=== PATIENT | female | born 1965 | race Caucasian/White ===

== ENCOUNTER 2019-11-13 07:41 | Outpatient (CLI) | payer OTHER, SELFPAY ==
--- NOTE | ~2019-11-13 | CT_ITS ---
EXAMINATION:CT chest wo con DATE: 11/13/2019 08:14 INDICATION: Right lung upper lobe cancer. TECHNIQUE: Computed tomography (CT) of the chest was performed without intravenous contrast. Automate d exposure control and iterative reconstruction technique were employed. The dose-length product (DLP ) was 125.10 mGy-cm. COMPARISON: Chest CT 11/11/2018, 12/11/2016, PET/CT 03/04/2016 FINDINGS: There is moderate emphysema. There is mild scarring at the lung apices. There are right per ihilar airspace opacities with volume loss and varicose bronchiectasis, consistent with relation fibr osis. Calcified right lung nodules and calcified right hilar and mediastinal lymph nodes are consiste nt with old granulomatous disease. No pleural effusion. The heart size is normal. There are coronary artery calcifications. No pericardial effusion. Calcifications in the liver and spleen are consistent with old granulomatous disease. There is mild thoracic spondylosis. IMPRESSION: 1. Stable right perihilar radiation fibrosis. No evidence of malignancy. 2. Moderate emphysema. Reviewed, dictated and finalized at location A.
== END 2019-11-13 07:42 | disposition home or self-care (01) ==
LOC: ANHIMG 07:47
PROVIDERS: PCP Internal Medicine Infectious Disease; Visit Provider Radiology Radiation Oncology
DX: Z85.118 Personal history of other malignant neoplasm of bronchus and lung (principal); J43.9 Emphysema, unspecified
CPT/HCPCS: 71250

== ENCOUNTER 2020-11-15 09:24 | Outpatient (CLI) | payer OTHER, SELFPAY ==
--- NOTE | ~2020-11-15 | CT_ITS ---
EXAMINATION: CT diagnostic chest wo con EXAM DATE: 11/15/2020 09:49 INDICATION: Lung cancer follow-up. TECHNIQUE: Spiral CT of the chest without contrast. Axial, coronal and sagittal images of the chest were reviewed. Coronal maximum intensity pixel images of chest reviewed. The dose-length product ( DLP) for this examination was 120.44 mGy-cm. The exposure was tailored according to patient size (au to mA exposure control), and iterative reconstruction (ASIR) was used as additional dose reduction te chnique. Comparison is made to prior examination from 11/13/2019. FINDINGS: Large amount of right paramedian opacity with volume loss, likely patient's treated lung c ancer and radiation fibrosis. Appearance is stable. There is moderate emphysema and severe hyperinfla tion with narrow cardiac silhouette. Mild bronchiectasis. Small to moderate pericardial effusion, sl ightly larger than previous examination. Tracheobronchial tree is patent. There is no mediastinal, hilar or axillary lymphadenopathy. There is no pneumothorax. There is mild coronary arterial matt cification, arterial sclerosis. Splenic and liver granulomas. There is mild thoracic spondylosis wi thout osteoblastic or osteolytic lesions identified. IMPRESSION: 1. Stable right paramedian treated lung cancer and radiation fibrosis. 2. Severe hyperinflation. Moderate emphysema. Reviewed, dictated and finalized at location A.
== END 2020-11-15 09:25 | disposition home or self-care (01) ==
LOC: ANHIMG 09:26
PROVIDERS: PCP Internal Medicine Infectious Disease; Visit Provider Physician Assistant Medical
DX: Z85.118 Personal history of other malignant neoplasm of bronchus and lung (principal); R91.8 Other nonspecific abnormal finding of lung field; J70.1 Chronic and other pulmonary manifestations due to radiation
CPT/HCPCS: 71250

== ENCOUNTER 2021-11-17 08:30 | Outpatient (CLI) | payer OTHER, SELFPAY ==
--- NOTE | ~2021-11-17 | CT_ITS ---
EXAMINATION:CT diagnostic chest wo con DATE: 11/17/2021 09:18 INDICATION: Squamous cell carcinoma of right lung. TECHNIQUE: Computed tomography (CT) of the chest was performed without intravenous contrast. Automate d exposure control and iterative reconstruction technique were employed. The dose-length product (DLP ) was 128.87 mGy-cm. COMPARISON: Chest CT 11/15/2020 FINDINGS: There is moderate emphysema. There are airspace opacities with volume loss and varicose bro nchiectasis involving perihilar right upper lobe and superior segment right right lower lobe, consist ent with radiation fibrosis. There is mild atelectasis and scarring in right middle lobe and basilar right lower lobe. There is minimal atelectasis and scarring in left lung. Calcified right lung nodule s and calcified right hilar and mediastinal lymph nodes are consistent with old granulomatous disease . No pleural effusion. The heart size is normal. No pericardial effusion. Calcifications in the liver and spleen are consistent with old granulomatous disease. There is mild thoracic spondylosis. IMPRESSION: 1. Stable radiation fibrosis in right lung. 2. Moderate emphysema. Reviewed, dictated and finalized at location A.
== END 2021-11-17 08:31 | disposition home or self-care (01) ==
PROVIDERS: PCP Internal Medicine Infectious Disease; Visit Provider Physician Assistant Medical
DX: C34.91 Malignant neoplasm of unspecified part of right bronchus or lung (principal); J43.9 Emphysema, unspecified; R91.8 Other nonspecific abnormal finding of lung field
CPT/HCPCS: 71250

== ENCOUNTER 2022-11-20 09:48 | Outpatient (CLI) | payer OTHER, SELFPAY ==
--- NOTE | ~2022-11-20 | CT_ITS ---
CT Scan of the Chest without Contrast: Clinical Indication: Squamous cell carcinoma right lung Technique: Contiguous sections were acquired throughout the chest without intravenous contrast. Dose reduction technique was used on this scan by utilizing automated exposure control and iterative recon struction technique. The dose-length product (DLP) was 126.87 mGy-cm. COMPARISON: 11/17/2021 Findings: There is no evidence of any significant mediastinal, hilar or axillary lymphadenopathy. Calcified sub carinal and right hilar lymph nodes are present. There is no evidence of pleural or pericardial effusion. There is stable chronic right-sided volume loss, with severe emphysema and bronchiectatic change invo lving the right upper lobe. Right perihilar chronic consolidative changes are also compatible with po st radiation pneumonitis. There is mild to moderate emphysema in the left lung, which is relatively h yperinflated. Images through the upper abdomen reveal calcified splenic and hepatic granulomas. Impression: No evidence for active malignancy or metastatic disease. No change from prior exam. Stable post radiation change in the right lung with associated right-sided volume loss, right perihil ar consolidation, and severe emphysema in the right upper lobe. Mild to moderate emphysema in the remainder of the lungs. Reviewed, dictated and finalized at location . Impression: No evidence for active malignancy or metastatic disease. No change from prior e xam. Stable post radiation change in the right lung with associated right-sided volu me loss, right perihilar consolidation, and severe emphysema in the right upper lobe. Mild to moderate emphysema in the remainder of the lungs.
== END 2022-11-20 09:49 | disposition home or self-care (01) ==
PROVIDERS: PCP Internal Medicine Infectious Disease; Visit Provider Physician Assistant Medical
DX: C34.91 Malignant neoplasm of unspecified part of right bronchus or lung (principal); J43.9 Emphysema, unspecified; R91.8 Other nonspecific abnormal finding of lung field; Z92.3 Personal history of irradiation
CPT/HCPCS: 71250

== ENCOUNTER 2023-12-16 10:39 | Outpatient (CLI) | payer OTHER, SELFPAY ==
--- NOTE | ~2023-12-16 | CT_ITS ---
EXAMINATION:CT diagnostic chest wo con DATE: 12/16/2023 11:00 INDICATION: Squamous cell carcinoma of right lung. TECHNIQUE: Computed tomography (CT) of the chest was performed without intravenous contrast. Automate d exposure control and iterative reconstruction technique were employed. The dose-length product (DLP ) was 127.54 mGy-cm. COMPARISON: Chest CT 11/20/2022 FINDINGS: There is moderate emphysema. There are airspace opacities involving right upper lobe, right middle lobe, and superior segment right lower lobe with volume loss, architectural distortion, and v aricose bronchiectasis, consistent with radiation pneumonitis. There is mild bronchiectasis in lingul a. There is mild atelectasis bilaterally. A calcified right lung nodule and calcified right hilar and mediastinal lymph nodes are consistent with old granulomatous disease. No pleural effusion. The hear t size is normal. No pericardial effusion. Calcifications in the liver and spleen are consistent with old granulomatous disease. There is mild thoracic spondylosis. IMPRESSION: 1. Chronic radiation pneumonitis in right lung with worsened collapse of right middle lobe. 2. Moderate emphysema. 3. No evidence of metastatic disease. Reviewed, dictated and finalized at location A.
== END 2023-12-16 10:40 | disposition home or self-care (01) ==
PROVIDERS: PCP Internal Medicine Infectious Disease; Visit Provider Physician Assistant Medical
DX: C34.91 Malignant neoplasm of unspecified part of right bronchus or lung (principal); J43.9 Emphysema, unspecified
CPT/HCPCS: 71250

== ENCOUNTER 2025-02-28 14:45 | Outpatient (CLI) | payer OTHER, SELFPAY ==
--- NOTE | ~2025-02-28 | CT_ITS ---
Exam: CT chest without contrast Clinical History: [Squamous cell carcinoma. ] Comparison: [ CT chest studies from 12/16/2023, 11/20/2022, 11/17/2021, 11/15/2020 and 11/13/2019] Technique: Multiple axial CT images of the chest without with IV contrast. Sagittal and coronal reformatted images were obtained. FINDINGS: Lungs and pleura: [ Grossly stable postsurgical change in the right hemithorax with volume loss. Grossly stable emphysema. There is 9 mm subpleural nodular density in the medial aspect of the superior segment of the left lower lobe. The finding is similar to the prior study from 12/16/2023. New 2.5 x 2.4 cm spiculated nodule in the left lower lobe with a small eccentric lucency. There is a new 2.4 x 4.2 cm consolidation in the lingula which abuts the major fissure. There is a moderate-sized adjacent groundglass opacity. New 1.8 x 1.0 cm pulmonary nodule in the left lower lobe. New moderate-sized area of groundglass opacities in the anterior left lower lobe. New 1.4 cm subpleural nodule in the anterior aspect of the left lower lobe. New small patchy opacities in the right lower lung. New 5 mm pulmonary nodular density in the right lower lung. New 1.5 cm subpleural density in the medial aspect of the right lower lung. Mediastinum and pulmonary miki: [ No mass or adenopathy.] Axillary/intramammary and supraclavicular: [ No mass or adenopathy.] Heart and great vessels: [ Normal heart size.[ [ No pericardial effusion.] [ No aneurysm.] Moderate atherosclerotic disease in the thoracic aorta. Chest Wall: [ Unremarkable.] Upper Abdomen: [ No significant findings.] Osseous structures: [ No acute fracture or destructive lesion.] [ Multilevel degenerative change in the visualized spine.] Additional findings: [ None of significance.] IMPRESSION: 1. New 2.5 x 2.4 cm spiculated nodule in the left lower lobe with an small eccentric lucency. A PET/CT and/or biopsy is recommended. 2. There is a new 2.4 x 4.2 cm consolidation in the lingula which abuts the major fissure. A PET/CT is recommended. 3. There is a moderate-sized groundglass opacity in the lingula. Differential includes but is not limited to an inflammatory or infectious process. 4. New 1.8 x 1.0 cm pulmonary nodule in the left lower lobe. A PET/CT and/or biopsy is recommended. 5. New moderate-sized area of groundglass opacities in the anterior left lower lobe. Differential includes but is not limited to an inflammatory or infectious process. 6. New 1.4 cm subpleural nodule in the anterior aspect of the left lower lobe. A PET/CT and/or biopsy is recommended. 7. New small patchy opacities in the right lower lung. Differential includes but is not limited to an inflammatory or infectious process. 8. New 5 mm pulmonary nodular density in the right lower lung. Attention on follow-up imaging. 9. New 1.5 cm subpleural density in the medial aspect of the right lower lung.A PET/CT and/or biopsy is recommended. 10. Emphysema. Reviewed, dictated and finalized at location Q. IMPRESSION: 1. New 2.5 x 2.4 cm spiculated nodule in the left lower lobe with an small ecce ntric lucency. A PET/CT and/or biopsy is recommended. 2. There is a new 2.4 x 4.2 cm consolidation in the lingula which abuts the erica or fissure. A PET/CT is recommended. 3. There is a moderate-sized groundglass opacity in the lingula. Differential i ncludes but is not limited to an inflammatory or infectious process. 4. New 1.8 x 1.0 cm pulmonary nodule in the left lower lobe. A PET/CT and/or bi opsy is recommended. 5. New moderate-sized area of groundglass opacities in the anterior left lower lobe. Differential includes but is not limited to an inflammatory or infectious process. 6. New 1.4 cm subpleural nodule in the anterior aspect of the left lower lobe. A PET/CT and/or biopsy is recommended. 7. New small patchy opacities in the right lower lung. Differential includes bu t is not limited to an inflammatory or infectious process. 8. New 5 mm pulmonary nodular density in the right lower lung. Attention on fol low-up imaging. 9. New 1.5 cm subpleural density in the medial aspect of the right lower lung.A PET/CT and/or biopsy is recommended. 10. Emphysema.
--- OUTSIDE RECORDS SUMMARY | 2025-02-28 16:45 | XMS_ITS | Clinical Summary ---
Author Organization [facility] Address [address] [place] [address] Care Team Providers Care Venetian Blind Maker Name Role Phone Rashaun Chavez MD Primary Care Provider Source Comments [facility],non-owned Affiliates and Associated Physician Practices is amultiple site organization consisting of ambulatory clinics and hospital sitesin [place], [place], [place] and [place]. This disclosure is being madepursuant to the Care Everywhere program and may not contain all information available regarding this patient. Last updated 18.[facility] Medications * Be aware that medications may not be up to date on this document. Alwaysverify current medications with the patient. tiotropium (SPIRIVA HANDIHALER) 18 MCG inhalation capsule Inhale by mouth DAILY. 03/31/2016 Active ibuprofen (MOTRIN) 600 MG tablet Take 600 mg by mouth q6h PRN (Pain). 03/31/2016 Active nicotine (NICOTINE STEP 1) 21 MG/24HR patch 0 02/21/2016 Active Active Problems Problem Noted Date Diagnosed Date Malignant neoplasm of right main bronchus 2015 Resolved Problems Problem Noted Date Diagnosed Date Resolved Date Pneumonia 03/31/2016 08/30/2017 Family History Medical History Relation Name Comments Cancer - Colon Brother Status: Alive Heart Disease Father Status: Deceas ed Leukemia Father Hypertension Mother Status: Alive None Known Sister Status: Alive Relation Name Status Comments Brother Father Mother Sister Social History Tobacco Use Types Packs/Day Years Used Date Smoking Tobacco: Former Cigarettes Q uit: 02/25/2016 Smokeless Tobacco: Never Alcohol Use Standard Drinks/Week Comments Yes 3 (1 standard drink = 0.6 oz pur e alcohol) Comments Unknown Sex and Gender Information Value Date Recorded Sex Assigned at Not on file Legal Sex Female 5:47 PM TERRAZZO FINISHER Gender Identity Not on file Sexual Orientation Not on file Last Filed Vital Signs Vital Sign Reading Time Taken Comments Blood Pressure 130/91 04/21/2016 2:52 PM TERRAZZO FINISHER Pulse 97 04/21/2016 2:52 PM TERRAZZO FINISHER Temperature 36.6 C (97.9 F) 04/21/2016 2:52 PM TERRAZZO FINISHER Respiratory Rate 21 04/02/2016 10:00 AM TERRAZZO FINISHER Oxygen Saturation 93% 04/21/2016 2:52 PM TERRAZZO FINISHER Inhaled Oxygen Concentration - - Weight 46.3 kg (102 lb) 04/21/2016 2:52 PM TERRAZZO FINISHER Height 152.4 cm (5') 04/21/2016 2:52 PM TERRAZZO FINISHER Body Mass Index 19.92 04/21/2016 2:52 PM TERRAZZO FINISHER Plan of Treatment Health Maintenance Due Date Last Done Comments COLOGUARD (AGES 45-75) - COL ON CA SCREENING 1964 COLON MONITORING 1964 COLONOSCOPY - COLON CA SCREENING 1964 CT COLONOGRAPHY - COLON CA SCREENING 1964 Colorectal Cancer Screening 1964 FIT - COLON CA SCREENING 1964 FLEX SIG - COLON CA SCREENING 1964 LIPID TESTING 1965 MAMMOGRAM 1964 HIV SCREENING 01/14/1979 HEPATITIS C SCREENING 01/10/1982 DTAP/TDAP/TD VACCINES (1 - Tdap) 01/14/1983 PNEUMOCOCCAL VACCINE 50+ (1 of 1 - PCV) 01/14/2014 ZOSTER VACCINE (1 of 2) 01/14/2014 DEPRESSION SCREENING 05/03/2024 COVID-19 VACCINE (1 - 2023-2 5 season) 2025 INFLUENZA VACCINE (#1) 2025 05/03/2017 Respiratory Syncytial Virus (RSV) Vaccine Pt: or over 60 yrs (1 - 1-dose 75+ series) 01/14/2039 HEPATITIS B VACCINE Aged Out No longe r eligible based on patient's age to complete this topic HIB VACCINE Aged Out No longer eligi ble based on patient's age to complete this topic HPV VACCINE Aged Out No longer eligi ble based on patient's age to complete this topic MENINGOCOCCAL (Group B) VACC INE SHARED DECISION-MAKING Aged Out No longer eligibl e based on patient's age to complete this topic MENINGOCOCCAL GROUPS A/C/Y/W VACCINE Aged Out No longer eligible b ased on patient's age to complete this topic Care Teams Venetian Blind Maker Relationship Specialty [place] [address] [place] [phone] PCP - General 03/18/16
--- OUTSIDE RECORDS SUMMARY | 2025-02-28 16:45 | XMS_ITS | Clinical Summary ---
Author Organization [facility] Address [address] [place] [address] Phone Care Team Providers Care Nutrition Specialist Name Role Phone Rashaun Chavez MD Primary Care Provider Rey Olivia MD Unavailable [phone] Hung Parnell MD Unavailable [phone] Rashaun Chavez MD Unavailable [phone] Allergies No known active allergies Medications LORazepam (ATIVAN) 1 mg tabletIndicatio ns:Non-small cell carcinoma of lung (HCC) Take 1 tablet (1 mg total) by mouth nightly as needed for anxiety or sleep. 30 tablet 8 Active acetaminophen (TYLENOL) 325 mg tabletIndicatio ns:Non-small cell carcinoma of lung (HCC) Take 2 tablets (650 mg total) by mouth every 6 (six) hours as needed for pain. 30 tablet 8 Active ibuprofen (ADVIL,MOTRIN) suspension 100 mg/5 mL ibuprofen Active tiotropium (SPIRIVA WITH HANDIHALER) 18 mcg per inhalation capsule Place into inhaler and inhale. 6 Active albuterol HFA (PROVENTIL HFA,VENTOLIN HFA,PROAIR HFA) 90 mcg/actuation inhalerIndicati ons:Squamous cell carcinoma of right lung (HCC),Shortness of breath Inhale 2 puffs every 6 (six) hours as needed for wheezing 1 each 3 3 Active guaiFENesin (ROBITUSSIN) syrup 100 mg/5 mLIndications:C ough Take 5 mL (100 mg total) by mouth 3 (three) times a day as needed for cough 120 mL 1 5 Active sertraline (ZOLOFT) 50 mg tabletIndicatio ns:Anxiety with Depression Take 1 tablet (50 mg total) by mouth daily 90 tablet 3 5 08/05/19 26 Active Active Problems Problem Noted Date Diagnosed Date Personal history of radiation therapy 12/11/2020 Squamous cell carcinoma of right lung 07/12/2017 Encounters Date Type Department Care Team Description 02/20/2025 [facility] Medical Office Building 2 Radiation Oncology [address] [place] [id number] Sarah Hunter 02/20/2025 Orders Only [facility] Medical Office Building 2 Radiation Oncology [address] [place] [phone] Patricia Argueta, PA Squamous cell carcinoma of right lung (HCC) (Primary Dx) 01/16/2025 [facility] Medical Office Building 2 Radiation Oncology [address] [place] [phone] Celine Bennett RN 01/04/2025 [facility] Medical Office Building 2 Radiation Oncology [address] [place] [id number] Celine Bennett, RN from Last 3 Months Immunizations Immunization Administration Dates Next Due Influenza, Unspecified 05/03/2017 Social History Tobacco Use Types Packs/Day Years Used Date Smoking Tobacco: Former Smokeless Tobacco: Never Alcohol Use Standard Drinks/Week Comments No 0 (1 standard drink = 0.6 oz pur e alcohol) Comments No Sex and Gender Information Value Date Recorded Sex Assigned at Not on file Legal Sex Female 8:30 PM SPACE STUDIES FACULTY MEMBER Gender Identity Not on file Sexual Orientation Not on file Obstetrics History Last Filed Vital Signs Vital Sign Reading Time Taken Comments Blood Pressure 137/76 05/11/2024 3:19 PM SPACE STUDIES FACULTY MEMBER Pulse 108 05/11/2024 3:19 PM SPACE STUDIES FACULTY MEMBER Temperature 36.7 C (98.1 F) 05/05/2018 11:44 AM SPACE STUDIES FACULTY MEMBER Respiratory Rate 22 05/05/2018 11:44 AM SPACE STUDIES FACULTY MEMBER Oxygen Saturation 100% 05/11/2024 3:19 PM SPACE STUDIES FACULTY MEMBER Inhaled Oxygen Concentration - - Weight 42.6 kg (94 lb) 05/11/2024 3:19 PM SPACE STUDIES FACULTY MEMBER Height 152.4 cm (5') 05/05/2018 11:44 AM SPACE STUDIES FACULTY MEMBER Body Mass Index 18.36 05/05/2018 11:44 AM SPACE STUDIES FACULTY MEMBER Plan of Treatment Health Maintenance Due Date Last Done Comments Cervical Cancer Screening 1964 Colon Cancer Screening-Colonoscopy 1964 Depression Screening 1964 Hepatitis C Screening 1964 Hepatitis B Screening 01/14/1982 Regular Well Visit/Exam 18-64 01/14/1982 Zoster Vaccine (2 of 3) 05/27/2017 04/01/20 17, 11/19/2016, 08/13/2016, Additional history exists Breast Cancer Screening-Mammogram 11/30/2018 018 Influenza Vaccine (#1) 2025 , 02/22/2023, 02/05/2022, Additional history exists DTaP/Tdap/Td Vaccine (3 - Td or Tdap) 02/14/2034 02/15/2024, 08/15/2018 Pneumococcal vaccine <65 Completed 02/05/2022, 08/01 Covid-19 Vaccine Completed 02/15/2024, , 02/05/2022, Additional history exists Insurance [facility] [place] [address] [place] [address] Care Teams Nutrition Specialist Relationship Specialty Start Date End Date Rashaun Chavez MD [address] [place] [id number] PCP - General 05/22/19 Rey Olivia MD [address] [place] [id number] Medical Oncologist/Mathematics Faculty Member Hematology and Oncology 04/20/18 Hung Parnell MD [address] [place] [id number] Radiation Oncologist Radiation Oncology 12/13/23 Rashaun Chavez MD [address] [place] [id number] Referring Physician Internal Medicine 01/04/25
--- OUTSIDE RECORDS SUMMARY | 2025-02-28 16:45 | XMS_ITS | Clinical Summary ---
Author Organization [facility] Address [facility] [place] [address] Care Team Providers Care Grain Operator Name Role Phone Unavailable Primary Care Provider Unavailabl e Social History Tobacco Use Types Packs/Day Years Used Date Smoking Tobacco: Never Assessed Comments Unknown Sex and Gender Information Value Date Recorded Sex Assigned at Not on file Legal Sex Female 7:14 PM CDT Gender Identity Not on file Sexual Orientation Not on file Plan of Treatment Health Maintenance Due Date Last Done Comments Cervical Cancer Screening Pa p Smear (Age 30 to 64) Every 3 Years 1964 Colorectal Cancer Screening Colonoscopy (10 Years) 1964 Annual Physical 01/14/1967 Hepatitis C 01/14/1982 DTaP, Tdap and Td Vaccines ( 1 - Tdap) 01/14/1983 Cervical Cancer Screening Pa p with HPV Testing (Age 30 to 64) Every 5 Years 01/14/1994 Cervical Cancer Screening with HPV 01/14/1994 Mammogram Screening 2004 Pneumococcal Vaccine: 50+ Ye ars (1 of 1 - PCV) 01/14/2014 Zoster Vaccines (1 of 2) 01/14/2014 COVID-19 Vaccine (2024-2 6 season) 2025 Influenza Adult (#1) 2025 RSV Immunization or 60+ Years (1 - 1-dose 75+ series) 01/14/2039 Hepatitis A Vaccines Aged Out No long er eligible based on patient's age to complete this topic Meningococcal B Vaccine Aged Out No l onger eligible based on patient's age to complete this topic Meningococcal Vaccine Aged Out No kiana jerri eligible based on patient's age to complete this topic RSV Immunizations Under 20 Months Aged Out No longer eligible based on patient's age to complete this topic
== END 2025-02-28 14:46 | disposition home or self-care (01) ==
LOC: ANHIMG 14:48
PROVIDERS: PCP Internal Medicine Infectious Disease; Visit Provider Physician Assistant Medical
DX: O34.91 Maternal care for abnormality of pelvic organ, unspecified, first trimester (principal); Z3A.00 Weeks of gestation of pregnancy not specified
CPT/HCPCS: 71250